=== PATIENT | male | born 1990 | race Caucasian/White ===

== ENCOUNTER 2018-03-18 22:43 | Inpatient (IN) | payer BC, MEDICAID, OTHER ==
[2018-03-18] MEDS ORDERED: SODIUM CHLORIDE 0.9% 1,000 ML IV ONE (23:10)
[2018-03-18 23:11] LABS: GLUCOSE, URINE (UA) 500 mg/dL (NEGATIVE); KETONES,URINE (UA) >=80 mg/dL (NEGATIVE); LEUKOCYTE ESTERASE, URINE NEGATIVE (NEGATIVE); NITRITE,URINE NEGATIVE (NEGATIVE); OCCULT BLOOD,URINE MODERATE (NEGATIVE); PH,URINE 5.5 PH (5.0-7.5); PROTEIN,URINE 30 mg/dL (NEGATIVE); UROBILINOGEN,URINE 0.2 (NORMAL) E.U./dL (NORMAL)
[2018-03-18 23:14] LABS: BILIRUBIN,URINE NEGATIVE (NEGATIVE); CLARITY,URINE CLEAR (CLEAR); ICTOTEST,URINE NEGATIVE
[2018-03-18 23:19] LABS: BACTERIA,URINE Rare /HPF (None Seen); CASTS, URINE 11-25 Hyaline Casts /LPF; MUCUS,URINE Few Strands; SQUAMOUS EPITHELIAL CELL,UR RARE Squamous (<= Few)
[2018-03-18 23:52] LABS: KETONES, SERUM (ACETEST) SMALL (NEGATIVE)
[2018-03-18 23:56] LABS: VBG BASE EXCESS -19.9 mmol/L (-2 - +2); VBG PCO2 18.2 mmHg (41-51); VBG PH 7.168 (7.31-7.41); VBG PO2 51.4 mmHg (25-47)
[2018-03-19] MEDS ORDERED: ONDANSETRON 4 MG/2 ML VIAL IVP PRN (00:05)
[2018-03-19] MEDS ORDERED: PROCHLORPERAZINE 10 MG/2 ML VIAL IVP PRN (00:05)
[2018-03-19] MEDS ORDERED: ACETAMINOPHEN 325 MG TABLET PO PRN (00:05)
[2018-03-19] MEDS ORDERED: PROMETHAZINE 25 MG/1 ML VIAL IM PRN (00:05)
[2018-03-19] MEDS ORDERED: oxyCODONE 5 MG TABLET PO PRN ×2 (00:05)
[2018-03-19] MEDS ORDERED: INSULIN REGULAR HUMAN 100 UNIT in SODIUM CHLORIDE 0.9% 100ML 99 ML IV SCH (00:05)
[2018-03-19] MEDS ORDERED: ZOLPIDEM 5 MG TABLET PO PRN (00:05)
[2018-03-19] MEDS ORDERED: SODIUM CHLORIDE 0.9% 1,000 ML IV ONE ×2 (00:07→01:31)
[2018-03-19 00:10] LABS: BASOPHILS # (AUTO) 0.1 10^3/uL (0.0-0.1); BASOPHILS % (AUTO) 0.6 %; EOSINOPHILS # (AUTO) 0.1 10^3/uL (0.0-0.7); EOSINOPHILS % (AUTO) 0.6 %; HGB - HEMOGLOBIN 14.3 g/dL (14.0-18.0); LYMPHOCYTES # (AUTO) 0.9 10^3/uL (1.5-3.5); LYMPHOCYTES % (AUTO) 10.3 %; MEAN CORPUSCULAR VOLUME 96.4 fL (80.0-94.0); MEAN PLATELET VOLUME 7.5 fL (7.4-11.4); MONOCYTES # (AUTO) 0.9 10^3/uL (0.0-1.0); MONOCYTES % (AUTO) 10.5 %; NEUTROPHILS # (AUTO) 6.7 10^3/uL (1.5-6.6); PLT - PLATELET COUNT 181 10^3/uL (130-450); RED BLOOD COUNT 4.29 10^6/uL (4.70-6.10); RED CELL DISTRIBUTION WIDTH 13.3 % (12.0-15.0); WHITE BLOOD COUNT 8.6 x10^3/uL (4.8-10.8)
--- NOTE | 2018-03-19 00:15 | HISTORY & PHYSICAL EXAMINATION ---
Chief Complaint - Chief Complaint Chief Complaint: Abdominal pain History of Present Illness - Admitted From Admitted From:: Emergency department - History Obtained From Records Reviewed: Yes History obtained from: Patient Exam Limitations: Severe abdominal pain, grimacing - History of Present Illness HPI Comment/Other: Patient is a 27-year-old gentleman with past medical history of bipolar and anxiety who presented to the emergency department with a chief complaint of abdominal pain. The patient states that when he woke up this morning he noticed that he had some discomfort in the left upper quadrant of his abdomen. He states that when he went to eat breakfast the pain became severe and he could not keep his breakfast down. He states that for the remainder of the day he has had left upper quadrant abdominal pain that has been up to a 9 out of 10 and he has been unable to eat anything. He states that he cannot even swallow because the pain is so bad and he feels nauseated. He states that over the last few months he is noted some odd symptoms. He states that he gets a metallic taste in his mouth, he has been having acid reflux and he has had constipation. He also notes that he has had a 30 pound weight loss over the last 5 months. He denies any polyuria or polydipsia. He states that today is the first time he experienced this kind of abdominal pain. The patient denies any heavy drinking, any travel, any recent illness and he does not take any medications or supplements. The patient states that he does drink a lot of water at baseline and has not noticed any changes recently. He also states that today he noticed that he got the chills especially when he tried to eat. He states that his left upper quadrant abdominal pain does move into the epigastric area when it gets very severe but he denies any radiation to the back. The patient states he has had no appetite today. The patient denies any fevers. The patient denies any headaches, blurred vision, runny nose, sore throat, nasal congestion, chest pain, cough, shortness of air, orthopnea, PND, increased lower extremity swelling, diarrhea, vomiting, dysuria, increased urinary urgency, joint pain, joint swelling, muscle aches, back pain, neck stiffness, focal neurologic deficits, hair loss, night sweats, skin rash. On presentation to the emergency department the patient was afebrile and his vital signs were within normal limits. The patient appeared to be in significant distress and had the smell of ketones to him. The patient underwent routine lab work which revealed a normal CBC with an anion gap metabolic acidosis, elevated glucose and positive serum ketones. The patient was also found to have an elevated lipase of 308 and in elevated bilirubin of 1.3 with an alk phos of 143. The patient underwent a CT of his abdomen and pelvis given his elevated LFTs and elevated lipase in the setting of a new diagnosis of diabetes with DKA. The patient's abdominal CT showed mild peripancreatic edema consistent with pancreatitis as well as large amount of stool in the colon. The patient also had possible fatty liver with mild splenomegaly. The patient also underwent an ultrasound of his abdomen which showed no cholelithiasis or cholecystitis and no biliary dilation but did reveal an enlarged spleen. The patient was tested for mono and the test was negative. The patient was started on an insulin drip in the emergency department and admitted to the intensive care unit for diabetic ketoacidosis and pancreatitis. History - Past Medical History Cardiovascular: reports: None Neuro: reports: None Endocrine/Autoimmune: reports: Type 1 diabetes (Newly diagnosed) GI: reports: None : reports: None HEENT: reports: None Psych: reports: Depression, Anxiety, Bipolar disorder Musculoskeletal: reports: None Derm: reports: None MRSA Hx?: No - Family & Social History Family History: Mother: Alive and Well, Father: Alive and Well, Other family: Cancer (Maternal grandmother had Cancer), Mental Illness (Paternal grandmother had bipolar and schizophrenia) Living arrangement: At home Living Situation: With spouse/s.o. Social History Notes: Patient lives in [place], [place]. He works full-time at [employer]. He lives with his girlfriend. He does not smoke cigarettes rarely drinks alcohol and denies any illicit drug use. - POLST Patient has POLST: No POLST Status: Full Code Meds/Allgy - Allergies Allergies/Adverse Reactions: Allergies Allergy/AdvReac Type Severity Reaction Status Date / Time No Known Drug Allergies Allergy Verified 03/18/18 22:53 Review of Systems - Other Findings Other Findings: A comprehensive review of systems was performed the pertinent positives and negatives are stated above in the HPI and the remainder of the review of systems is negative. Exam - Vital Signs Reviewed Vital Signs: Yes Vital Signs: Vital Signs x48h Temp Pulse Resp BP Pulse Ox 03/18/18 22:50 36.8 C 93 18 128/78 98 - Physical Exam General Appearance: positive: Alert, Moderate distress (Abdominal pain), Anxious Eyes Bilateral: positive: Normal inspection, PERRL, EOMI, No lid inflammation, Conjunctivae nml, No scleral icterus ENT: positive: ENT inspection nml, Pharynx nml, Dry mucous membranes. negative : Purulent nasal drainage, Pharyngeal erythema, Oral lesions Neck: positive: Nml inspection, Thyroid nml, No JVD, Trachea midline. negative : Thyromegaly, Lymphadenopathy (R), Lymphadenopathy (L), Stiff neck, Carotid bruit, Tracheal deviation Respiratory: positive: Chest non-tender, No respiratory distress, Breath sounds nml. negative: Wheezes, Rales, Rhonchi Cardiovascular: positive: Regular rate & rhythm, No murmur, No gallop Peripheral Pulses: positive: 2+ Abdomen: positive: Tenderness (Tenderness with guarding in the left upper quadrant and epigastric area of the abdomen. No rebound and abdomen is soft.), Guarding, Splenomegaly, Abnml bowel sounds (Increase bowel sounds). negative: Rebound, Hepatomegaly Back: positive: Nml inspection. negative: CVA tenderness (R), CVA tenderness (L ) Skin: positive: Color nml, No rash, Warm, Dry. negative: Cyanosis, Diaphoresis , Pallor, Skin rash, Decubitus Extremities: positive: Non-tender, Full ROM, Nml appearance, No pedal edema Neurologic/Psychiatric: positive: Oriented x3, CN's nml (2-12), Motor nml, Sensation nml, Mood/affect nml Conclusion/Plan - Problem List (1) DKA (diabetic ketoacidoses) Conclusion/Plan: Patient presented to the emergency department with abdominal pain, nausea and decreased appetite. Patient is also lost 30 pounds over the last 5 months. Patient has no previous diagnosis of diabetes. On presentation the patient had an elevated blood glucose with an anion gap metabolic acidosis and positive serum ketones. The patient was in DKA on presentation. It appears unlikely because of his DKA is a pancreatitis. This may all be due to a viral infection that could have led to pancreatitis and caused autoimmune destruction of his beta cells of the pancreas leading to a presentation of DKA. Plan: Insulin drip 0.1 U/kilogram per hour Check CMP every 2 hours until anion gap is closed Bicarb drip Stop insulin drip once anion gap is closed and then placed on n.p.o. sliding scale insulin as patient is still being treated for pancreatitis Check hemoglobin A1c Patient will need teaching for diabetes and will need to be started on insulin subcu once pancreatitis is resolved and patient can eat. Qualifiers: Diabetes mellitus type: other specified (including RONDA) Diabetes mellitus complication detail: without coma Qualified Code(s): E13.10 - Other specified diabetes mellitus with ketoacidosis without coma (2) Pancreatitis Conclusion/Plan: Patient presented with DKA and was found to have an elevated lipase and CT scan showed grace-pancreatic edema consistent with pancreatitis. The patient is not a drinker and his ultrasound was negative for any gallstones or cholecystitis. Patient is not on any medications. It appears the most likely cause of his pancreatitis is a viral infection. This could also explain why he developed DKA. They could also explain his elevated LFTs and splenomegaly. The patient' s infectious mono testing was negative. Plan: IV fluids Bowel rest n.p.o. IV morphine for pain control IV antiemetics for nausea control Check CMV PCR, HIV and hepatitis tank pumper panelboard lipase Qualifiers: Chronicity: acute Pancreatitis type: other Acute pancreatitis complication: unspecified Qualified Code(s): K85.80 - Other acute pancreatitis without necrosis or infection (3) High anion gap metabolic acidosis Conclusion/Plan: Patient has a high anion gap metabolic acidosis secondary to diabetic ketoacidosis. The patient will be placed on a bicarbonate drip and we will continue to monitor the patient's acidosis. Patient will also be treated for DKA and we expect that with resolution of patient's DKA the metabolic acidosis should also resolve. (4) Hyponatremia Conclusion/Plan: Patient does have hyponatremia on presentation with a sodium of 133 this appears to be hypovolemic hyponatremia and patient will be given IV fluids and we will recheck sodium. (5) Hypokalemia Conclusion/Plan: Patient has hypokalemia on presentation with a potassium of 3.3. As the patient is getting an insulin drip his potassium will likely continue to decrease. We will need to add potassium to his IV fluids. Continue to monitor potassium. (6) Fatty liver Conclusion/Plan: The patient does have appearance of a fatty liver on his CT scan. The patient does have a slightly elevated LFTs. Patient is not a drinker nor is he obese but he does have diabetes which appears to be his only risk factor for fatty liver given his young age this is unusual. It will need to continue to be monitored as an out patient. (7) Splenomegaly Conclusion/Plan: Patient does have splenomegaly on presentation I suspect that the patient had a viral illness that led to his pancreatitis as well as to his diabetes and DKA. The viral illness likely has led to splenomegaly. This will need to be monitored. It does not appear that the patient has a hematologic malignancy or any other kind of malignancy at this time. - Lab Results Lab results reviewed: Yes Fish Bones: 03/18/18 23:03/19/18 01:00 Other Lab Results: Laboratory Results WBC 8.6 x10^3/uL (4.8-10.8) 03/18/18 RBC 4.29 10^6/uL (4.70-6.10) L 03/18/18: Hgb 14.3 g/dL (14.0-18.0) 03/18/18: Hct 41.4 % (42.0-52.0) L 03/18/18: MCV 96.4 fL (80.0-94.0) H 03/18/18: MCH 33.3 pg (27.0-31.0) H 03/18/18: MCHC 34.5 g/dL (32.0-36.0) 03/18/18: RDW 13.3 % (12.0-15.0) 03/18/18 Plt Count 181 10^3/uL (130-450) 03/18/18: MPV 7.5 fL (7.4-11.4) 03/18/18: Neut # 6.7 10^3/uL (1.5-6.6) H 03/18/18: Lymph # 0.9 10^3/uL (1.5-3.5) L 03/18/18: [place] # 0.9 10^3/uL (0.0-1.0) 03/18/18: Eos # 0.1 10^3/uL (0.0-0.7) 05/21/18 23:28 Baso # 0.1 10^3/uL (0.0-0.1) 03/18/18 23:28 Absolute Nucleated RBC 0.01 x10^3/uL 03/18/18 23:28 Nucleated RBC % 0.1 /100WBC 03/18/18 23:28 VBG pH 7.118 (7.31-7.41) L 03/19/18 00:34 VBG pCO2 18.8 mmHg (41-51) L 03/19/18 00:34 VBG pO2 73.6 mmHg (25-47) H 03/19/18 00:34 VBG HCO3 5.9 mmol/L (23-28) L 03/19/18 00:34 VBG Total CO2 6.5 mmol/L (24-29) L 03/19/18 00:34 VBG O2 Saturation 94.7 % (60-80) H 03/19/18 00:34 VBG Base Excess -21.5 mmol/L (-2 - +2) L 03/19/18 00:34 Sodium 137 mmol/L (135-145) 03/19/18 02:48 Potassium 3.6 mmol/L (3.5-5.0) 03/19/18 02:48 Chloride 113 mmol/L (101-111) H 03/19/18 02:48 Carbon Dioxide < 10 mmol/L (21-32) L* 03/19/18 02:48 Anion Gap 14.0 (6-13) H 03/19/18 02:48 BUN 9 mg/dL (6-20) 03/19/18 02:48 Creatinine 0.9 mg/dL (0.6-1.2) 03/19/18 02:48 Estimated GFR (MDRD) 100 (>89) 03/19/18 02:48 Glucose 222 mg/dL (70-100) H 03/19/18 02:48 POC Whole Bld Glucose 207 mg/dL (70 - 100) H 03/19/18 03:00 Glycated Hemoglobin 12.1 % (4.6-6.2) H 03/19/18 00:34 Estim Average Glucose 301 (70-100) H 03/19/18 00:34 Lactic Acid 0.8 mmol/L (0.5-2.2) 03/18/18 23:28 Calcium 7.9 mg/dL (8.5-10.3) L 03/19/18 02:48 Phosphorus 4.0 mg/dL (2.5-4.6) 03/18/18 23: Magnesium 1.9 mg/dL (1.7-2.8) 03/19/18 02:48 Total Bilirubin 1.3 mg/dL (0.2-1.0) H 03/18/18 23:28 AST 11 IU/L (10-42) 03/18/18 23:28 ALT 13 IU/L (10-60) 03/18/18 23: Alkaline Phosphatase 143 IU/L (42-121) H 03/18/18 23: Troponin I < 0.04 ng/mL (<0.49) 03/19/18 00:34 Total Protein 6.6 g/dL (6.7-8.2) L 03/18/18 23: Albumin 4.2 g/dL (3.2-5.5) 03/18/18 23: Globulin 2.0 g/dL (2.1-4.2) L 03/18/18 23:28 Albumin/Globulin Ratio 1.8 (1.0-2.2) 03/18/18 23:28 Lipase 308 U/L (22-51) H 03/18/18 23:28 Urine Color YELLOW 03/18/18 23:05 Urine Clarity CLEAR (CLEAR) 03/18/18 23:05 Urine pH 5.5 PH (5.0-7.5) 03/18/18 23:05 Ur Specific [place] >=1.030 (1.002-1.030) H 03/18/18 23:05 Urine Protein 30 mg/dL (NEGATIVE) H 03/18/18 23:05 Urine Glucose (UA) 500 mg/dL (NEGATIVE) H 03/18/18 23:05 Urine Ketones >=80 mg/dL (NEGATIVE) H 03/18/18 23:05 Urine Occult Blood MODERATE (NEGATIVE) H 03/18/18 23:05 Urine Nitrite NEGATIVE (NEGATIVE) 03/18/18 23:05 Urine Bilirubin NEGATIVE (NEGATIVE) 03/18/18 23:05 Urine Urobilinogen 0.2 (NORMAL) E.U./dL (NORMAL) 03/18/18 23:05 Ur Leukocyte Esterase NEGATIVE (NEGATIVE) 03/18/18 23:05 Urine RBC 11-25 /HPF (0-5) H 03/18/18 23:05 Urine WBC 0-3 /HPF (0-3) 03/18/18 23:05 Ur Squamous Epith Cells RARE Squamous (<= Few) 03/18/18 23:05 Urine Bacteria Rare /HPF (None Seen) 03/18/18 23:05 Urine Casts 11-25 Hyaline Casts /LPF 03/18/18 23:05 Urine Mucus Few Strands 03/18/18 23:05 Ur Microscopic Review INDICATED 03/18/18 23:05 Urine Culture Comments NOT INDICATED 03/18/18 23:05 Serum Ketones SMALL (NEGATIVE) H 03/19/18 02:48 Infectious [place] Assay NEGATIVE (Negative) 03/18/18 23:28 - Diagnostic Imaging Results Diagnostic Imaging Results: positive: Final report reviewed Diagnostic Imaging Results Comments: CT abdomen/pelvis Impression: 1. Mild peripancreatic edema consistent with pancreatitis. No acute complication seen. 2. Large amount of stool in the colon. 3. Multiple nonspecific nondilated fluid filled small bowel loops. 4. Possible fatty liver with mild splenomegaly 5. Moderate to markedly distended urinary bladder. Abdominal ultrasound Impression: 1. No cholelithiasis or cholecystitis identified. 2. No biliary dilation 3. Enlarged spleen - EKG Results EKG Interpreted Independently: Yes EKG Findings: NSR Core Measures - Anticipated LOS I expect patient to be DC'd or transferred within 96 hours.: Yes - DVT/VTE - Prophylaxis VTE/DVT Prophylaxis med ordered at admit?: Yes
[2018-03-19 00:16] LABS: MEAN CORPUSCULAR HEMOGLOBIN 33.3 pg (27.0-31.0); MEAN CORPUSCULAR HGB CONC 34.5 g/dL (32.0-36.0)
--- NOTE | 2018-03-19 00:38 | ED Physician Documentation ---
PD HPI ABD PAIN - Stated complaint Stated Complaint: ABD PX - Chief complaint Chief Complaint: Abd Pain - History obtained from History obtained from: Patient, Family - History of Present Illness Timing - onset: How many weeks ago (2) Timing - details: Gradual onset, Still present Quality: Cramping, Aching, Stabbing Location: LUQ Worsened by: Eating, Position Associated symptoms: Nausea, Loss of appetite, Weight loss. No: Fever, Vomiting , Diarrhea, Constipation Similar symptoms before: Diagnosis Recently seen: Not recently seen - Additional information Additional information: Patient is a 27 year old male with no significant past medical history who is presenting to the emergency department for abdominal pain and weight loss. patient states that over the last few weeks he has had worsening abdominal pain. patient states that he has been eating but he has been loosing weight. Review of Systems Constitutional: denies: Fever, Chills Eyes: reports: Reviewed and negative Ears: reports: Reviewed and negative Throat: reports: Reviewed and negative Cardiac: denies: Chest pain / pressure, Palpitations Respiratory: denies: Dyspnea, Cough GI: reports: Abdominal Pain, Nausea. denies: Vomiting, Constipation, Diarrhea : reports: Dysuria, Frequency Neurologic: reports: Generalized weakness Endocrine: reports: Polydypsia, Polyuria, Weight loss Immunocompromised: denies: Immunocompromised PD PAST MEDICAL HISTORY - Past Medical History Cardiovascular: None Neuro: None Endocrine/Autoimmune: None GI: None : None HEENT: None Psych: Depression, Anxiety, Bipolar disorder Musculoskeletal: None Derm: None - Allergies Allergies/Adverse Reactions: Allergies Allergy/AdvReac Type Severity Reaction Status Date / Time No Known Drug Allergies Allergy Verified 03/18/18 22:53 - Social History Does the pt smoke?: No Smoking Status: Never smoker PD ED PE NORMAL - Vitals Vital signs reviewed: Yes - General General: Alert and oriented X 3 - HEENT HEENT: Atraumatic - Neck Neck: Supple, no meningeal sign - Cardiac Cardiac: RRR - Respiratory Respiratory: No respiratory distress, Clear bilaterally - Derm Derm: Normal color, No rash - Extremities Extremities: No deformity - Neuro Neuro: Alert and oriented X 3, No motor deficit, Normal speech Eye Opening: Spontaneous PD ED PE EXPANDED - General General: In Pain - HEENT HEENT: Dry mucous membranes - Abdomen Abdomen: Tender to palpation, Epigastric, LUQ. No: Rebound Results - Vitals Vitals: Vital Signs - 24 hr 03/18/18 22:50 Temperature 36.8 C Heart Rate 93 Respiratory 18 Rate Blood Pressure 128/78 O2 Saturation 98 Oxygen O2 Source Room air - Labs Labs: Laboratory Tests 03/18/18 03/18/18 03/18/18 23:05 23:08 23:28 WBC 8.6 RBC 4.29 L Hgb 14.3 Hct 41.4 L MCV 96.4 H MCH 33.3 H MCHC 34.5 RDW 13.3 Plt Count 181 MPV 7.5 Neut # 6.7 H Lymph # 0.9 L [place] # 0.9 Eos # 0.1 Baso # 0.1 Absolute Nucleated RBC 0.01 Nucleated RBC % 0.1 VBG pH VBG pCO2 VBG pO2 VBG HCO3 VBG Total CO2 VBG O2 Saturation VBG Base Excess Sodium Potassium Chloride Carbon Dioxide Anion Gap BUN Creatinine Estimated GFR (MDRD) Glucose POC Whole Bld Glucose 322 H Lactic Acid Calcium Phosphorus Magnesium Total Bilirubin AST ALT Alkaline Phosphatase Total Protein Albumin Globulin Albumin/Globulin Ratio Lipase Urine Color YELLOW Urine Clarity CLEAR Urine pH 5.5 Ur Specific [place] >=1.030 H Urine Protein 30 H Urine Glucose (UA) 500 H Urine Ketones >=80 H Urine Occult Blood MODERATE H Urine Nitrite NEGATIVE Urine Bilirubin NEGATIVE Urine Urobilinogen 0.2 (NORMAL) Ur Leukocyte Esterase NEGATIVE Urine RBC 11-25 H Urine WBC 0-3 Ur Squamous Epith Cells RARE Squamous Urine Bacteria Rare Urine Casts 11-25 Hyaline Casts Urine Mucus Few Strands Ur Microscopic Review INDICATED Urine Culture Comments NOT INDICATED Serum Ketones Infectious [place] Assay 03/18/18 03/18/18 03/18/18 23:28 23:28 23:28 WBC RBC Hgb Hct MCV MCH MCHC RDW Plt Count MPV Neut # Lymph # [place] # Eos # Baso # Absolute Nucleated RBC Nucleated RBC % VBG pH 7.168 L VBG pCO2 18.2 L VBG pO2 51.4 H VBG HCO3 6.5 L VBG Total CO2 7.0 L VBG O2 Saturation 85.1 H VBG Base Excess -19.9 L Sodium 133 L Potassium 3.3 L Chloride 103 Carbon Dioxide 7 L* Anion Gap 23.0 H BUN 12 Creatinine 1.0 Estimated GFR (MDRD) 89 Glucose 298 H POC Whole Bld Glucose Lactic Acid 0.8 Calcium 8.4 L Phosphorus 4.0 Magnesium 2.1 Total Bilirubin 1.3 H AST 11 ALT 13 Alkaline Phosphatase 143 H Total Protein 6.6 L Albumin 4.2 Globulin 2.0 L Albumin/Globulin Ratio 1.8 Lipase 308 H Urine Color Urine Clarity Urine pH Ur Specific [place] Urine Protein Urine Glucose (UA) Urine Ketones Urine Occult Blood Urine Nitrite Urine Bilirubin Urine Urobilinogen Ur Leukocyte Esterase Urine RBC Urine WBC Ur Squamous Epith Cells Urine Bacteria Urine Casts Urine Mucus Ur Microscopic Review Urine Culture Comments Serum Ketones SMALL H Infectious [place] Assay 03/18/18 23:28 WBC RBC Hgb Hct MCV MCH MCHC RDW Plt Count MPV Neut # Lymph # [place] # Eos # Baso # Absolute Nucleated RBC Nucleated RBC % VBG pH VBG pCO2 VBG pO2 VBG HCO3 VBG Total CO2 VBG O2 Saturation VBG Base Excess Sodium Potassium Chloride Carbon Dioxide Anion Gap BUN Creatinine Estimated GFR (MDRD) Glucose POC Whole Bld Glucose Lactic Acid Calcium Phosphorus Magnesium Total Bilirubin AST ALT Alkaline Phosphatase Total Protein Albumin Globulin Albumin/Globulin Ratio Lipase Urine Color Urine Clarity Urine pH Ur Specific [place] Urine Protein Urine Glucose (UA) Urine Ketones Urine Occult Blood Urine Nitrite Urine Bilirubin Urine Urobilinogen Ur Leukocyte Esterase Urine RBC Urine WBC Ur Squamous Epith Cells Urine Bacteria Urine Casts Urine Mucus Ur Microscopic Review Urine Culture Comments Serum Ketones Infectious [place] Assay NEGATIVE - Rads (name of study) ct abd pelvis Radiology: Final report received (acute pancreatitis) PD MEDICAL DECISION MAKING - ED course Complexity details: reviewed old records, reviewed results, re-evaluated patient , considered differential, d/w patient, d/w family, d/w qa consultant ED course: Patient was seen and examined at bedside. patient's breath smelled like ketones so fingerstick was ordered and was elevated at over 300. patient was started on IV fluids but stated that he did not want any pain medication. Labs were drawn and findings were consistent with dka and pancreatitis. Patient was treated with a second liter of fluid, potassium and insulin drip was started. Case was discussed with the hospitalist who agreed to admission. patient had imaging enroute that confirmed pancreatitis. Patient was admitted to the icu in critical condition. Departure - Departure Disposition: 66 [facility] DC/Xfer Clinical Impression: DKA (diabetic ketoacidoses) Condition: Critical
[2018-03-19 00:46] LABS: ALBUMIN 4.2 g/dL (3.2-5.5); ALBUMIN/GLOBULIN RATIO 1.8 (1.0-2.2); ALKALINE PHOSPHATASE 143 IU/L (42-121); ALT ALANINE AMINOTRANSFERASE 13 IU/L (10-60); AST ASPARTATE AMINOTRANSFERASE 11 IU/L (10-42); BILIRUBIN,TOTAL 1.3 mg/dL (0.2-1.0); BUN - BLOOD UREA NITROGEN 12 mg/dL (6-20); CALCIUM 8.4 mg/dL (8.5-10.3); CHLORIDE 103 mmol/L (101-111); GFR - MDRD 89 (>89); GLUCOSE 298 mg/dL (70-100); LIPASE 308 U/L (22-51); MAGNESIUM 2.1 mg/dL (1.7-2.8); SODIUM 133 mmol/L (135-145); TOTAL PROTEIN 6.6 g/dL (6.7-8.2)
[2018-03-19 00:47] LABS: CARBON DIOXIDE - CO2 7 mmol/L (21-32)
[2018-03-19] MEDS ORDERED: POTASSIUM CHLOR 10 MEQ/100 ML 10 MEQ/100 ML BAG IV ONE (00:52)
[2018-03-19] MEDS ORDERED: INSULIN REGULAR HUMAN 100 UNIT in SODIUM CHLORIDE 0.9% 100ML 99 ML IV STA (00:52)
[2018-03-19] MEDS ORDERED: SODIUM CHLORIDE 0.9% 1,000 ML IV SCH (01:00)
[2018-03-19 01:08] LABS: VBG BASE EXCESS -21.5 mmol/L (-2 - +2); VBG PCO2 18.8 mmHg (41-51); VBG PH 7.118 (7.31-7.41); VBG PO2 73.6 mmHg (25-47); VBG TOTAL CO2 6.5 mmol/L (24-29)
[2018-03-19] MEDS ORDERED: IOPAMIDOL-300 100 ML VIAL ONE (01:16)
[2018-03-19 01:19] LABS: BUN - BLOOD UREA NITROGEN 10 mg/dL (6-20); CALCIUM 7.6 mg/dL (8.5-10.3); CHLORIDE 107 mmol/L (101-111); GFR - MDRD 89 (>89); GLUCOSE 270 mg/dL (70-100); MAGNESIUM 1.9 mg/dL (1.7-2.8); SODIUM 133 mmol/L (135-145)
[2018-03-19 01:20] LABS: CARBON DIOXIDE - CO2 < 10 mmol/L (21-32)
[2018-03-19] MEDS ORDERED: IOPAMIDOL-300 100 ML VIAL IVP ONE (01:45)
--- NOTE | 2018-03-19 02:03 | CT Report ---
EXAM: CT ABDOMEN AND PELVIS EXAM DATE: 03/19/2018 01:50 AM. CLINICAL HISTORY: Abdominal pain, elevated lipase. COMPARISONS: None. TECHNIQUE: Routine helical CT imaging was performed through the abdomen and pelvis. IV contrast: 100M L ISOVUE 300. Enteric contrast: No. Reconstructions: Coronal and sagittal. In accordance with CT protocol optimization, one or more of the following dose reduction techniques w ere utilized for this exam: automated exposure control, adjustment of mA and/or KV based on patient s ize, or use of iterative reconstructive technique. FINDINGS: Lung Bases: Unremarkable. Liver: Possible fatty infiltration. Gallbladder/Bile Ducts: Unremarkable. Spleen: Enlarged at 14 cm. Pancreas: Mild peripancreatic edema consistent with pancreatitis. No abscess or pseudocyst. Adrenal Glands: Normal. Kidneys: Normal. No masses or hydronephrosis. Peritoneal Cavity/Bowel: Large amount of stool in the colon. Multiple nonspecific nondilated fluid-fi lled small bowel loops. No free air or free fluid identified. No lymphadenopathy seen. Appendix is pa rtially seen and visualized portions appear normal. Pelvic Organs: Moderately to markedly distended urinary bladder. No leak organs are otherwise unremar kable. Vasculature: No aneurysms or other significant abnormality. Bones: No significant abnormality. Other: None. IMPRESSION: 1. Mild peripancreatic edema consistent with pancreatitis. No acute complication seen. 2. Large amount of stool in the colon. 3. Multiple nonspecific nondilated fluid-filled small bowel loops. 4. Possible fatty liver with mild splenomegaly. 5. Moderately to markedly distended urinary bladder. [facility] Referring Provider Line: [phone] SITE ID: [id number]
[2018-03-19 02:15] LABS: HB2 TOTAL 13.8 g/dL; HEMOGLOBIN A1C 1.5 g/dL; HEMOGLOBIN A1C % 12.1 % (4.6-6.2)
--- NOTE | 2018-03-19 02:42 | Ultrasound Preliminary Report ---
Exam: US ABDOMEN LIMITED IMPRESSION: 1. No cholelithiasis or cholecystitis identified. 2. No biliary dilatation. 3. Enlarged spleen. [facility] SITE ID: [id number]
--- NOTE | 2018-03-19 02:42 | Ultrasound Report ---
EXAM: ABDOMEN ULTRASOUND LIMITED, RUQ EXAM DATE: 03/19/2018 01:42 AM. CLINICAL HISTORY: Elevated lipase and LFTs with abdominal pain r/o cholecystitis. COMPARISON: CT, 03/19/2018. TECHNIQUE: Real-time scanning was performed with static images obtained. FINDINGS: Liver: Normal in size and echotexture. 16.7 cm. Main portal vein flow: Hepatopetal. Gallbladder: Normal. No stones, wall thickening, or sonographic Tucker's sign. Biliary System: CBD measures 2 mm. No intrahepatic or extrahepatic ductal dilatation. Other: Last portions of the pancreas are grossly unremarkable. Most of the pancreas is obscured by [place] gas. Right kidney measures 13.8 cm and appears normal. Inferior vena cava is patent where seen. S plenomegaly measuring 14.2 cm. IMPRESSION: 1. No cholelithiasis or cholecystitis identified. 2. No biliary dilatation. 3. Enlarged spleen. [facility] Referring Provider Line: [phone] SITE ID: [id number]
[2018-03-19] MEDS ORDERED: MORPHINE 2 MG/ML SYRINGE IVP PRN ×2 (02:44→05:22)
[2018-03-19] MEDS: SODIUM CHLORIDE FLUSH 0.9% 10 ML SYRINGE IVP PRN (02:54)
[2018-03-19 02:59] LABS: KETONES, SERUM (ACETEST) SMALL (NEGATIVE)
[2018-03-19] MEDS ORDERED: DEXTROSE 5% 1,000 ML IV ONE (03:18)
[2018-03-19] MEDS ORDERED: SODIUM BICARBONATE 8.4% 50 MEQ/50 ML VIAL ONE (03:20)
[2018-03-19 03:21] LABS: BUN - BLOOD UREA NITROGEN 9 mg/dL (6-20); CALCIUM 7.9 mg/dL (8.5-10.3); CARBON DIOXIDE - CO2 < 10 mmol/L (21-32); CHLORIDE 113 mmol/L (101-111); CREATININE 0.9 mg/dL (0.6-1.2); GFR - MDRD 100 (>89); GLUCOSE 222 mg/dL (70-100); MAGNESIUM 1.9 mg/dL (1.7-2.8); SODIUM 137 mmol/L (135-145)
[2018-03-19] MEDS: SODIUM BICARBONATE 100 MEQ in DEXTROSE 5% 1,000 ML IV SCH ×2 (03:28→14:32)
[2018-03-19] MEDS: SODIUM CHLORIDE FLUSH 0.9% 10 ML SYRINGE IVP SCH ×3 (03:47→15:15)
[2018-03-19] MEDS ORDERED: MORPHINE 2 MG/ML SYRINGE IVP SCH (04:17)
[2018-03-19 04:26] LABS: KETONES, SERUM (ACETEST) SMALL (NEGATIVE)
[2018-03-19 04:31] LABS: BASOPHILS % (AUTO) 0.5 %; EOSINOPHILS % (AUTO) 0.3 %; HGB - HEMOGLOBIN 12.3 g/dL (14.0-18.0); LYMPHOCYTES # (AUTO) 0.7 10^3/uL (1.5-3.5); LYMPHOCYTES % (AUTO) 7.6 %; MEAN CORPUSCULAR VOLUME 97.8 fL (80.0-94.0); MEAN PLATELET VOLUME 7.6 fL (7.4-11.4); MONOCYTES # (AUTO) 1.1 10^3/uL (0.0-1.0); MONOCYTES % (AUTO) 11.9 %; NEUTROPHILS # (AUTO) 7.3 10^3/uL (1.5-6.6); NEUTROPHILS % (AUTO) 79.7 %; PLT - PLATELET COUNT 161 10^3/uL (130-450); RED BLOOD COUNT 3.68 10^6/uL (4.70-6.10); RED CELL DISTRIBUTION WIDTH 13.2 % (12.0-15.0); WHITE BLOOD COUNT 9.1 x10^3/uL (4.8-10.8)
[2018-03-19 04:35] LABS: MEAN CORPUSCULAR HEMOGLOBIN 33.4 pg (27.0-31.0); MEAN CORPUSCULAR HGB CONC 34.3 g/dL (32.0-36.0)
[2018-03-19 04:50] LABS: ALBUMIN 3.5 g/dL (3.2-5.5); ALBUMIN/GLOBULIN RATIO 2.2 (1.0-2.2); ALKALINE PHOSPHATASE 114 IU/L (42-121); ALT ALANINE AMINOTRANSFERASE 17 IU/L (10-60); AST ASPARTATE AMINOTRANSFERASE 20 IU/L (10-42); BILIRUBIN,TOTAL 1.6 mg/dL (0.2-1.0); BUN - BLOOD UREA NITROGEN 10 mg/dL (6-20); CALCIUM 7.8 mg/dL (8.5-10.3); CHLORIDE 116 mmol/L (101-111); CREATININE 0.9 mg/dL (0.6-1.2); GFR - MDRD 100 (>89); GLUCOSE 191 mg/dL (70-100); MAGNESIUM 1.8 mg/dL (1.7-2.8); PHOSPHORUS 3.2 mg/dL (2.5-4.6); SODIUM 140 mmol/L (135-145); TOTAL PROTEIN 5.1 g/dL (6.7-8.2)
[2018-03-19 04:54] LABS: CARBON DIOXIDE - CO2 < 10 mmol/L (21-32)
[2018-03-19 05:00] LABS: CHOL/HDL RATIO 38.3 (<5.0); CHOLESTEROL 345 mg/dL; HDL CHOLESTEROL 9 mg/dL
[2018-03-19] MEDS ORDERED: SODIUM CHLORIDE 0.9% 500 ML IV PRN (05:23)
[2018-03-19 05:27] LABS: LDL CHOLESTEROL,DIRECT 89 mg/dL; LDLD/HDL RATIO 9.9 (<3.6)
[2018-03-19] MEDS: ACETAMINOPHEN 1,000 MG/100 ML 100 ML IV PRN ×3 (05:31→20:00)
[2018-03-19 08:19] LABS: VBG PH 7.266 (7.31-7.41)
[2018-03-19] MEDS: SENNA 8.6 MG TABLET PO SCH (08:52)
[2018-03-19] MEDS: DOCUSATE SODIUM 250 MG CAPSULE PO SCH (08:52)
[2018-03-19] MEDS: FAMOTIDINE 20 MG/50 ML 50 ML IV SCH ×2 (09:07→20:57)
[2018-03-19] MEDS: POTASSIUM CHLOR 10 MEQ/100 ML 10 MEQ/100 ML BAG IV SCH ×4 (09:13→12:32)
[2018-03-19] MEDS: INSULIN REGULAR HUMAN 100 UNIT in SODIUM CHLORIDE 0.9% 100ML 99 ML IV SCH ×2 (15:12→15:37)
--- NOTE | 2018-03-19 16:27 | PROVIDER PROGRESS NOTE ---
Assessment/Plan - Problem List (1) DKA (diabetic ketoacidoses) Qualifiers: Diabetes mellitus type: other specified (including RONDA) Diabetes mellitus complication detail: without coma Qualified Code(s): E13.10 - Other specified diabetes mellitus with ketoacidosis without coma Assessment/Plan: Still clearing ketones. Continue DKA protocol. I discussed diagnosis and management with parents and girlfriend at patient's bedside. (2) Pancreatitis Qualifiers: Chronicity: acute Pancreatitis type: other Acute pancreatitis complication: unspecified Qualified Code(s): K85.80 - Other acute pancreatitis without necrosis or infection Assessment/Plan: Continue to follow labs (3) Splenomegaly Assessment/Plan: Etiology unclear Awaiting viral tests. Continue to monitor clinically. (4) Hypertriglyceridemia Assessment/Plan: Continue to follow labs. Treat by decreasing serum glu level - Current Meds Current Meds: Current Medications Generic Name Dose Route Start Last Admin Trade Name Freq PRN Reason Stop Dose Admin Docusate Sodium 250 - 500 mg 03/19/18 09:00 03/19/18 08:52 Colace 250mg Capsule PO Not Given DAILY CUCO Famotidine 50 mls @ 100 mls/hr 03/19/18 09:00 03/19/18 09:37 Pepcid 20 Mg/50 Ml IV Infused BID CUCO Infusion Sodium Bicarbonate 100 meq/ 1,100 mls @ 100 mls/hr 03/19/18 02:00 03/19/18 16 :00 Dextrose IV 100 mls/hr .Q11H CUCO Infusion Acetaminophen 100 mls @ 400 mls/hr 03/19/18 02:45 03/19/18 11:55 Ofirmev IV Infused Q6HR PRN Infusion PAIN Sodium Chloride 500 mls @ 10 mls/hr 03/19/18 05:23 03/19/18 16:00 Normal Saline 0.9% IV 10 mls/hr .Q48H PRN Infusion Peripheral Line Protocol Insulin Human Regular 100 unit 100 mls @ 1 mls/hr 03/19/18 15:04 03/19/18 16: 03 / Sodium Chloride IV 1 unit/hr .Q72H CUCO 1 mls/hr 1 UNIT/HR Infusion Morphine Sulfate 1 mg 03/19/18 05:22 03/19/18 05:32 Morphine IVP 1 mg Q2H PRN Administration PAIN Senna 8.6 - 17.2 mg 03/19/18 09:00 03/19/18 08:52 Senokot PO Not Given DAILY CUCO Sodium Chloride 10 ml 03/19/18 01:00 03/19/18 15:15 Normal Saline Flush 0.9% IVP Not Given 0100,0900,1700 CUCO Sodium Chloride 10 ml 03/19/18 00:05 03/19/18 02:54 Normal Saline Flush 0.9% IVP 10 ml PRN PRN Administration NEEDED PER PROVIDER ORDERS - Lab Result Fish Bone Diagrams: 03/20/18 04:40 03/20/18 14:23 - Additional Planning My Orders: My Active Orders 03/19/18 15:04 Sodium Chloride 0.9% 100Ml [Normal Saline 0.9% 100Ml] 99 ml Insulin Regular Human [NovoLIN R] 100 unit IV 1 unit/hr Subjective - Subjective Nursing Reports: Other (Pt sleeping most of day.) Objective Vital Signs: Vital Signs - 24 hr 03/19/18 03/19/18 03/19/18 00:46 02:35 03:00 Temperature 36.7 C 37.5 C Heart Rate 86 Heart Rate [ 74 72 Monitoring electrodes] Respiratory 16 15 19 Rate Blood Pressure 127/65 Blood Pressure 122/69 112/57 L [Right Brachial artery] O2 Saturation 100 100 100 03/19/18 03/19/18 03/19/18 04:00 05:00 06:00 Temperature Heart Rate Heart Rate [ 78 80 87 Monitoring electrodes] Respiratory 18 17 17 Rate Blood Pressure Blood Pressure 110/59 L 111/61 117/61 [Right Brachial artery] O2 Saturation 99 98 96 03/19/18 03/19/18 03/19/18 07:00 08:00 09:27 Temperature 37.4 C Heart Rate Heart Rate [ 70 68 71 Monitoring electrodes] Respiratory 13 13 14 Rate Blood Pressure Blood Pressure 110/63 109/56 L 104/59 L [Right Brachial artery] O2 Saturation 96 97 98 03/19/18 03/19/18 03/19/18 10:00 10:30 11:30 Temperature 37.8 C H Heart Rate Heart Rate [ 74 79 Monitoring electrodes] Respiratory 14 16 Rate Blood Pressure Blood Pressure 97/62 99/57 L 103/59 L [Right Brachial artery] O2 Saturation 100 98 03/19/18 03/19/18 03/19/18 12:00 13:00 14:00 Temperature 37.4 C Heart Rate Heart Rate [ 76 68 75 Monitoring electrodes] Respiratory 16 14 14 Rate Blood Pressure Blood Pressure 103/58 L 102/62 102/54 L [Right Brachial artery] O2 Saturation 95 94 100 03/19/18 03/19/18 15:00 16:00 Temperature Heart Rate Heart Rate [ 77 70 Monitoring electrodes] Respiratory 16 13 Rate Blood Pressure Blood Pressure 113/55 L 105/58 L [Right Brachial artery] O2 Saturation 98 Oxygen O2 Source Room air I&O (Last 24 Hrs): Intake and Output Totals x24h 03/17/18 03/18/18 03/19/18 23:59 23:59 23:59 Intake Total 5328.166 Output Total 3675 Balance 1653.166 General: Other (Sleeping) HEENT: Mucous membr. moist/pink Neck: Supple Neuro: Other (Lethargic) Cardiovascular: Regular rate, No murmurs Respiratory: No respiratory distress, Breath sounds nml Abdomen: Soft, Other (Decteased bowel soiunds, no guarding or rebound) Extremities: No edema - Results Results: Laboratory Results WBC 9.1 x10^3/uL (4.8-10.8) 03/19/18 04:11 RBC 3.68 10^6/uL (4.70-6.10) L 03/19/18 04:11 Hgb 12.3 g/dL (14.0-18.0) L 03/19/18 04:11 Hct 35.9 % (42.0-52.0) L 03/19/18 04:11 MCV 97.8 fL (80.0-94.0) H 03/19/18 04:11 MCH 33.4 pg (27.0-31.0) H 03/19/18 04:11 MCHC 34.3 g/dL (32.0-36.0) 03/19/18 04:11 RDW 13.2 % (12.0-15.0) 03/19/18 04:11 Plt Count 161 10^3/uL (130-450) 03/19/18 04:11 MPV 7.6 fL (7.4-11.4) 03/19/18 04:11 Neut # 7.3 10^3/uL (1.5-6.6) H 03/19/18 04:11 Lymph # 0.7 10^3/uL (1.5-3.5) L 03/19/18 04:11 [place] # 1.1 10^3/uL (0.0-1.0) H 03/19/18 04:11 Eos # 0.0 10^3/uL (0.0-0.7) 03/19/18 04:11 Baso # 0.0 10^3/uL (0.0-0.1) 03/19/18 04:11 Absolute Nucleated RBC 0.01 x10^3/uL 03/19/18 04:11 Nucleated RBC % 0.1 /100WBC 03/19/18 04:11 VBG pH 7.266 (7.31-7.41) L 03/19/18 08:00 VBG pCO2 18.8 mmHg (41-51) L 03/19/18 00:34 VBG pO2 73.6 mmHg (25-47) H 03/19/18 00:34 VBG HCO3 5.9 mmol/L (23-28) L 03/19/18 00:34 VBG Total CO2 6.5 mmol/L (24-29) L 03/19/18 00:34 VBG O2 Saturation 94.7 % (60-80) H 03/19/18 00:34 VBG Base Excess -21.5 mmol/L (-2 - +2) L 03/19/18 00:34 Ionized Calcium 1.20 mmol/L (1.15-1.33) 03/19/18 08:00 Sodium 140 mmol/L (135-145) 03/19/18 04:11 Potassium 3.3 mmol/L (3.5-5.0) L 03/19/18 04:11 Chloride 116 mmol/L (101-111) H 03/19/18 04:11 Carbon Dioxide < 10 mmol/L (21-32) L* 03/19/18 04:11 Anion Gap 14.0 (6-13) H 03/19/18 04:11 BUN 10 mg/dL (6-20) 03/19/18 04:11 Creatinine 0.9 mg/dL (0.6-1.2) 03/19/18 04:11 Estimated GFR (MDRD) 100 (>89) 03/19/18 04:11 Glucose 191 mg/dL (70-100) H 03/19/18 04:11 POC Whole Bld Glucose 101 mg/dL (70 - 100) H 03/19/18 15:40 Glycated Hemoglobin 12.1 % (4.6-6.2) H 03/19/18 00:34 Estim Average Glucose 301 (70-100) H 03/19/18 00:34 Lactic Acid 0.8 mmol/L (0.5-2.2) 03/18/18 23:28 Calcium 7.8 mg/dL (8.5-10.3) L 03/19/18 04:11 Phosphorus 3.2 mg/dL (2.5-4.6) 03/19/18 04:11 Magnesium 1.8 mg/dL (1.7-2.8) 03/19/18 04:11 Total Bilirubin 1.6 mg/dL (0.2-1.0) H 03/19/18 04:11 AST 20 IU/L (10-42) 03/19/18 04:11 ALT 17 IU/L (10-60) 03/19/18 04:11 Alkaline Phosphatase 114 IU/L (42-121) 03/19/18 04:11 Troponin I < 0.04 ng/mL (<0.49) 03/19/18 12:09 Total Protein 5.1 g/dL (6.7-8.2) L 03/19/18 04:11 Albumin 3.5 g/dL (3.2-5.5) 03/19/18 04:11 Globulin 1.3 g/dL (2.1-4.2) L 03/19/18 04:11 Albumin/Globulin Ratio 2.2 (1.0-2.2) 03/19/18 04:11 Triglycerides > 2000 mg/dL (-149) H 03/19/18 04:11 Cholesterol 345 mg/dL (-199) H 03/19/18 04:11 LDL Cholesterol Direct 89 mg/dL (-129) 03/19/18 04:11 LDL Cholesterol, Calc Not Reportable 03/19/18 04:11 VLDL Cholesterol Not Reportable 03/19/18 04:11 HDL Cholesterol 9 mg/dL (60-) L 03/19/18 04:11 LDL/HDL Ratio Not Reportable 03/19/18 04:11 dLDL/HDL Ratio 9.9 (<3.6) 03/19/18 04:11 Cholesterol/HDL Ratio 38.3 (<5.0) 03/19/18 04:11 Lipase 308 U/L (22-51) H 03/18/18 23:28 TSH 2.74 uIU/mL (0.34-5.60) 03/19/18 08:00 Urine Color YELLOW 03/18/18 23:05 Urine Clarity CLEAR (CLEAR) 03/18/18 23:05 Urine pH 5.5 PH (5.0-7.5) 03/18/18 23:05 Ur Specific [place] >=1.030 (1.002-1.030) H 03/18/18 23:05 Urine Protein 30 mg/dL (NEGATIVE) H 03/18/18 23:05 Urine Glucose (UA) 500 mg/dL (NEGATIVE) H 03/18/18 23:05 Urine Ketones >=80 mg/dL (NEGATIVE) H 03/18/18 23:05 Urine Occult Blood MODERATE (NEGATIVE) H 03/18/18 23:05 Urine Nitrite NEGATIVE (NEGATIVE) 03/18/18 23:05 Urine Bilirubin NEGATIVE (NEGATIVE) 03/18/18 23:05 Urine Urobilinogen 0.2 (NORMAL) E.U./dL (NORMAL) 03/18/18 23:05 Ur Leukocyte Esterase NEGATIVE (NEGATIVE) 03/18/18 23:05 Urine RBC 11-25 /HPF (0-5) H 03/18/18 23:05 Urine WBC 0-3 /HPF (0-3) 03/18/18 23:05 Ur Squamous Epith Cells RARE Squamous (<= Few) 03/18/18 23:05 Urine Bacteria Rare /HPF (None Seen) 03/18/18 23:05 Urine Casts 11-25 Hyaline Casts /LPF 03/18/18 23:05 Urine Mucus Few Strands 03/18/18 23:05 Ur Microscopic Review INDICATED 03/18/18 23:05 Urine Culture Comments NOT INDICATED 03/18/18 23:05 Serum Ketones SMALL (NEGATIVE) H 03/19/18 16:01 Infectious [place] Assay NEGATIVE (Negative) 03/18/18 23:28 ABX Reporting Has patient been on IV antibiotics over the past 48 hours?: No
[2018-03-20] MEDS: SODIUM CHLORIDE FLUSH 0.9% 10 ML SYRINGE IVP SCH ×3 (01:01→18:36)
[2018-03-20] MEDS ORDERED: SODIUM BICARBONATE 8.4% 50 MEQ/50 ML VIAL ONE (01:35)
[2018-03-20] MEDS: SODIUM BICARBONATE 100 MEQ in DEXTROSE 5% 1,000 ML IV SCH (01:37)
[2018-03-20] MEDS ORDERED: DEXTROSE 5% 1,000 ML IV ONE (01:38)
[2018-03-20 05:09] LABS: BASOPHILS # (AUTO) 0.2 10^3/uL (0.0-0.1); BASOPHILS % (AUTO) 3.4 %; EOSINOPHILS # (AUTO) 0.1 10^3/uL (0.0-0.7); EOSINOPHILS % (AUTO) 2.5 %; LYMPHOCYTES # (AUTO) 0.6 10^3/uL (1.5-3.5); LYMPHOCYTES % (AUTO) 11.5 %; MEAN PLATELET VOLUME 7.6 fL (7.4-11.4); MONOCYTES # (AUTO) 0.8 10^3/uL (0.0-1.0); MONOCYTES % (AUTO) 16.3 %; NEUTROPHILS # (AUTO) 3.2 10^3/uL (1.5-6.6); NEUTROPHILS % (AUTO) 66.3 %; PLT - PLATELET COUNT 131 10^3/uL (130-450); RED BLOOD COUNT 3.32 10^6/uL (4.70-6.10); WHITE BLOOD COUNT 4.9 x10^3/uL (4.8-10.8)
[2018-03-20 05:31] LABS: MEAN CORPUSCULAR HEMOGLOBIN 32.2 pg (27.0-31.0); MEAN CORPUSCULAR HGB CONC 34.3 g/dL (32.0-36.0); MEAN CORPUSCULAR VOLUME 94.1 fL (80.0-94.0); RED CELL DISTRIBUTION WIDTH 13.7 % (12.0-15.0)
[2018-03-20 05:32] LABS: ALBUMIN 3.1 g/dL (3.2-5.5); ALBUMIN/GLOBULIN RATIO 1.3 (1.0-2.2); ALKALINE PHOSPHATASE 96 IU/L (42-121); ALT ALANINE AMINOTRANSFERASE 10 IU/L (10-60); AST ASPARTATE AMINOTRANSFERASE < 10 IU/L (10-42); BILIRUBIN,TOTAL 0.8 mg/dL (0.2-1.0); BUN - BLOOD UREA NITROGEN 10 mg/dL (6-20); CALCIUM 8.3 mg/dL (8.5-10.3); CARBON DIOXIDE - CO2 22 mmol/L (21-32); CHLORIDE 105 mmol/L (101-111); CHOL/HDL RATIO 10.1 (<5.0); CHOLESTEROL 162 mg/dL; CREATININE 0.6 mg/dL (0.6-1.2); GFR - MDRD 160 (>89); GLUCOSE 178 mg/dL (70-100); HDL CHOLESTEROL 16 mg/dL; MAGNESIUM 2.3 mg/dL (1.7-2.8); PHOSPHORUS 2.4 mg/dL (2.5-4.6); SODIUM 133 mmol/L (135-145); TOTAL PROTEIN 5.4 g/dL (6.7-8.2)
[2018-03-20] MEDS ORDERED: POTASSIUM PHOSPHATE 15 MMOL in SODIUM CHLORIDE 0.9% 250 ML IV ONE ×2 (05:38→08:30)
[2018-03-20 05:51] LABS: LDL CHOLESTEROL,DIRECT 51 mg/dL; LDLD/HDL RATIO 3.2 (<3.6)
[2018-03-20] MEDS ORDERED: INSULIN REGULAR HUMAN 100 UNIT in SODIUM CHLORIDE 0.9% 100ML 99 ML IV SCH (06:20)
[2018-03-20] MEDS: POTASSIUM CHLOR 10 MEQ/100 ML 10 MEQ/100 ML BAG IV SCH ×13 (06:30→20:07)
[2018-03-20] MEDS: INSULIN GLARGINE 300 UNIT/3 ML PEN SUBQ SCH ×2 (07:12→17:57)
[2018-03-20] MEDS: ACETAMINOPHEN 1,000 MG/100 ML 100 ML IV PRN (08:24)
[2018-03-20] MEDS: SENNA 8.6 MG TABLET PO SCH (10:00)
[2018-03-20] MEDS: DOCUSATE SODIUM 250 MG CAPSULE PO SCH (10:00)
[2018-03-20] MEDS: FAMOTIDINE 20 MG/50 ML 50 ML IV SCH ×2 (10:04→21:00)
[2018-03-20] MEDS: SODIUM CHLORIDE FLUSH 0.9% 10 ML SYRINGE IVP PRN ×2 (10:10→14:33)
[2018-03-20] MEDS: INSULIN ASPART 300 UNIT/3 ML PEN SUBQ SCH ×3 (12:42→21:20)
[2018-03-20] MEDS: INSULIN REGULAR HUMAN 100 UNIT/1 ML 10 ML MDV SUBQ SCH ×2 (12:44→18:34)
[2018-03-20 15:38] LABS: HIV AG/AB 4TH GEN NON-REACTIVE (NON-REACTIVE)
[2018-03-20] MEDS ORDERED: SODIUM CHLORIDE 0.9% 500 ML IV PRN (16:45)
--- NOTE | 2018-03-20 17:06 | PROVIDER PROGRESS NOTE ---
Assessment/Plan - Problem List (1) DKA (diabetic ketoacidoses) Qualifiers: Diabetes mellitus type: other specified (including RONDA) Diabetes mellitus complication detail: without coma Qualified Code(s): E13.10 - Other specified diabetes mellitus with ketoacidosis without coma Assessment/Plan: Resolved with normal anion gap. Starting Lantus and Insulin sliding scale coverage. Will advance diet (2) Pancreatitis Qualifiers: Chronicity: acute Pancreatitis type: other Acute pancreatitis complication: unspecified Qualified Code(s): K85.80 - Other acute pancreatitis without necrosis or infection Assessment/Plan: Improved lipase. Continue to follow labs. (3) Splenomegaly Assessment/Plan: Viral etiology suspected as he had no trauma. Follow CBC and exam daily. The LUQ pain is not severe enough for pain meds. He will need a GI eval after DCh. (4) Hypertriglyceridemia Assessment/Plan: Triglycerides are better with DKA resolved. Will follow TG daily as he may need Fibrates. - Current Meds Current Meds: Current Medications Generic Name Dose Route Start Last Admin Trade Name Thaq PRN Reason Stop Dose Admin Docusate Sodium 250 - 500 mg 03/19/18 09:00 03/20/18 10:00 Colace 250mg Capsule PO Not Given DAILY CUCO Famotidine 50 mls @ 100 mls/hr 03/19/18 09:00 03/20/18 10:34 Pepcid 20 Mg/50 Ml IV Infused BID CUCO Infusion Acetaminophen 100 mls @ 400 mls/hr 03/19/18 02:45 03/20/18 08:39 Ofirmev IV Infused Q6HR PRN Infusion PAIN Potassium Chloride 10 meq in 100 mls @ 100 mls/hr 03/20/18 07:00 03/20/18 16: 44 Potassium Chloride IV 03/20/18 18:59 100 mls/hr Q1H CUCO Administration Protocol Sodium Chloride 500 mls @ 10 mls/hr 03/20/18 16:45 03/20/18 17:02 Normal Saline 0.9% IV 75 mls/hr .Q48H PRN Administration Peripheral Line Protocol Insulin Aspart 1 - 9 unit 03/20/18 12:28 03/20/18 12:42 Novolog SUBQ 3 unit 0800,1200,1700,2100 CUCO Administration Protocol Insulin Glargine 10 unit 03/20/18 07:00 03/20/18 07:12 Lantus Solostar SUBQ 10 unit 0600,1800 CUCO Administration Insulin Human Regular 1 - 9 unit 03/20/18 12:00 03/20/18 12:44 Novolin R SUBQ Not Given Q6HR [facility] Protocol Senna 8.6 - 17.2 mg 03/19/18 09:00 03/20/18 10:00 Senokot PO Not Given DAILY CUCO Sodium Chloride 10 ml 03/19/18 01:00 03/20/18 10:55 Normal Saline Flush 0.9% IVP Not Given 0100,0900,1700 CUCO Sodium Chloride 10 ml 03/19/18 00:05 03/20/18 14:33 Normal Saline Flush 0.9% IVP 10 ml PRN PRN Administration NEEDED PER PROVIDER ORDERS - Lab Result Fish Bone Diagrams: 03/20/18 04:40 03/20/18 14:23 - Additional Planning My Orders: My Active Orders 03/20/18 12:28 Insulin Aspart [NovoLOG] 1 - 9 unit SUBQ 0800,1200,1700,2100 03/20/18 14:23 PHOSPHORUS [CHEM] Timed 03/20/18 16:45 Sodium Chloride 0.9% [Normal Saline 0.9%] 500 ml IV 10 mls/hr 03/20/18 Lunch DIET [Full Liquid Diet] [DIET] 03/21/18 05:00 LIPASE [CHEM] DAILYLAB LIPID Panel [CHEM] DAILYLAB Subjective - Subjective Patient Reports: Feeling Better, Other (Pain in LUQ is slight and once had a burning in epigastrium today.) Nursing Reports: Other (No nausea or vomiting. Ate liquid lunch.) Objective Vital Signs: Vital Signs - 24 hr 03/19/18 03/19/18 03/19/18 18:00 19:00 20:00 Temperature 38.0 C H Heart Rate [ 81 79 80 Monitoring electrodes] Respiratory 19 19 18 Rate Blood Pressure 105/56 L 100/53 L 106/59 L [Right Brachial artery] O2 Saturation 97 95 96 03/19/18 03/19/18 03/19/18 20:59 21:00 22:00 Temperature 37.6 C H 37.5 C Heart Rate [ 72 75 73 Monitoring electrodes] Respiratory 17 16 13 Rate Blood Pressure 90/55 L 100/59 L [Right Brachial artery] O2 Saturation 97 97 97 03/19/18 03/20/18 03/20/18 23:00 00:00 01:00 Temperature 37.1 C Heart Rate [ 68 72 72 Monitoring electrodes] Respiratory 12 11 L 13 Rate Blood Pressure 102/55 L 100/55 L 101/61 [Right Brachial artery] O2 Saturation 97 97 97 03/20/18 03/20/18 03/20/18 02:00 03:00 04:17 Temperature 37.0 C Heart Rate [ 59 L 59 L 59 L Monitoring electrodes] Respiratory 15 14 13 Rate Blood Pressure 99/56 L 97/58 L 95/58 L [Right Brachial artery] O2 Saturation 97 97 97 03/20/18 03/20/18 03/20/18 05:00 06:00 07:00 Temperature Heart Rate [ 62 63 67 Monitoring electrodes] Respiratory 12 12 13 Rate Blood Pressure 104/59 L 93/54 L 97/56 L [Right Brachial artery] O2 Saturation 99 03/20/18 03/20/18 03/20/18 07:31 09:00 10:00 Temperature 37.3 C Heart Rate [ 66 70 64 Monitoring electrodes] Respiratory 14 17 14 Rate Blood Pressure 97/56 L 100/60 99/60 [Right Brachial artery] O2 Saturation 98 03/20/18 03/20/18 03/20/18 11:00 11:31 14:00 Temperature Heart Rate [ 64 67 62 Monitoring electrodes] Respiratory 14 15 12 Rate Blood Pressure 93/57 L 93/57 L 92/60 [Right Brachial artery] O2 Saturation 03/20/18 03/20/18 15:00 16:00 Temperature 36.7 C Heart Rate [ 61 65 Monitoring electrodes] Respiratory 15 13 Rate Blood Pressure 89/58 L 103/68 [Right Brachial artery] O2 Saturation 100 Oxygen O2 Source Room air I&O (Last 24 Hrs): Intake and Output Totals x24h 03/18/18 03/19/18 03/20/18 23:59 23:59 23:59 Intake Total 5921.800 3974.767 Output Total 5075 825 Balance 550.550 2800.767 General: Alert, Oriented x3 HEENT: Mucous membr. moist/pink Neck: Supple Neuro: Non Focal Cardiovascular: Regular rate, No murmurs Respiratory: No respiratory distress, Breath sounds nml Abdomen: Soft, No tenderness Extremities: No edema - Results Results: Laboratory Results WBC 4.9 x10^3/uL (4.8-10.8) 03/20/18 04:40 RBC 3.32 10^6/uL (4.70-6.10) L 03/20/18 04:40 Hgb 11.0 g/dL (14.0-18.0) L 03/20/18 04:40 Hct 32.2 % (42.0-52.0) L 03/20/18 04:40 MCV 94.1 fL (80.0-94.0) H 03/20/18 04:40 MCH 32.2 pg (27.0-31.0) H 03/20/18 04:40 MCHC 34.3 g/dL (32.0-36.0) 03/20/18 04:40 RDW 13.7 % (12.0-15.0) 03/20/18 04:40 Plt Count 131 10^3/uL (130-450) 03/20/18 04:40 MPV 7.6 fL (7.4-11.4) 03/20/18 04:40 Neut # 3.2 10^3/uL (1.5-6.6) 03/20/18 04:40 Lymph # 0.6 10^3/uL (1.5-3.5) L 03/20/18 04:40 [place] # 0.8 10^3/uL (0.0-1.0) 03/20/18 04:40 Eos # 0.1 10^3/uL (0.0-0.7) 03/20/18 04:40 Baso # 0.2 10^3/uL (0.0-0.1) H 03/20/18 04:40 Absolute Nucleated RBC 0.00 x10^3/uL 03/20/18 04:40 Nucleated RBC % 0.0 /100WBC 03/20/18 04:40 VBG pH 7.266 (7.31-7.41) L 03/19/18 08:00 VBG pCO2 18.8 mmHg (41-51) L 03/19/18 00:34 VBG pO2 73.6 mmHg (25-47) H 03/19/18 00:34 VBG HCO3 5.9 mmol/L (23-28) L 03/19/18 00:34 VBG Total CO2 6.5 mmol/L (24-29) L 03/19/18 00:34 VBG O2 Saturation 94.7 % (60-80) H 03/19/18 00:34 VBG Base Excess -21.5 mmol/L (-2 - +2) L 03/19/18 00:34 Ionized Calcium 1.20 mmol/L (1.15-1.33) 03/19/18 08:00 Sodium 133 mmol/L (135-145) L 03/20/18 04:40 Potassium 3.1 mmol/L (3.5-5.0) L 03/20/18 14:23 Chloride 105 mmol/L (101-111) 03/20/18 04:40 Carbon Dioxide 22 mmol/L (21-32) 03/20/18 04:40 Anion Gap 6.0 (6-13) 03/20/18 04:40 BUN 10 mg/dL (6-20) 03/20/18 04:40 Creatinine 0.6 mg/dL (0.6-1.2) 03/20/18 04:40 Estimated GFR (MDRD) 160 (>89) 03/20/18 04:40 Glucose 178 mg/dL (70-100) H 03/20/18 04:40 POC Whole Bld Glucose 265 mg/dL (70 - 100) H 03/20/18 16:51 Glycated Hemoglobin 12.1 % (4.6-6.2) H 03/19/18 00:34 Estim Average Glucose 301 (70-100) H 03/19/18 00:34 Lactic Acid 0.8 mmol/L (0.5-2.2) 03/18/18 23:28 Calcium 8.3 mg/dL (8.5-10.3) L 03/20/18 04:40 Phosphorus 2.5 mg/dL (2.5-4.6) 03/20/18 10:25 Magnesium 2.1 mg/dL (1.7-2.8) 03/20/18 14:23 Total Bilirubin 0.8 mg/dL (0.2-1.0) 03/20/18 04:40 AST < 10 IU/L (10-42) L 03/20/18 04:40 ALT 10 IU/L (10-60) 03/20/18 04:40 Alkaline Phosphatase 96 IU/L (42-121) 03/20/18 04:40 Troponin I < 0.04 ng/mL (<0.49) 03/19/18 18:18 Total Protein 5.4 g/dL (6.7-8.2) L 03/20/18 04:40 Albumin 3.1 g/dL (3.2-5.5) L 03/20/18 04:40 Globulin 2.3 g/dL (2.1-4.2) 03/20/18 04:40 Albumin/Globulin Ratio 1.3 (1.0-2.2) 03/20/18 04:40 Triglycerides 405 mg/dL (-149) H 03/20/18 04:40 Cholesterol 162 mg/dL (-199) 03/20/18 04:40 LDL Cholesterol Direct 51 mg/dL (-129) 03/20/18 04:40 LDL Cholesterol, Calc Not Reportable 03/20/18 04:40 VLDL Cholesterol Not Reportable 03/20/18 04:40 HDL Cholesterol 16 mg/dL (60-) L 03/20/18 04:40 LDL/HDL Ratio Not Reportable 03/20/18 04:40 dLDL/HDL Ratio 3.2 (<3.6) 03/20/18 04:40 Cholesterol/HDL Ratio 10.1 (<5.0) 03/20/18 04:40 Lipase 209 U/L (22-51) H 03/20/18 05:00 TSH 2.74 uIU/mL (0.34-5.60) 03/19/18 08:00 Urine Color YELLOW 03/18/18 23:05 Urine Clarity CLEAR (CLEAR) 03/18/18 23:05 Urine pH 5.5 PH (5.0-7.5) 03/18/18 23:05 Ur Specific [place] >=1.030 (1.002-1.030) H 03/18/18 23:05 Urine Protein 30 mg/dL (NEGATIVE) H 03/18/18 23:05 Urine Glucose (UA) 500 mg/dL (NEGATIVE) H 03/18/18 23:05 Urine Ketones >=80 mg/dL (NEGATIVE) H 03/18/18 23:05 Urine Occult Blood MODERATE (NEGATIVE) H 03/18/18 23:05 Urine Nitrite NEGATIVE (NEGATIVE) 03/18/18 23:05 Urine Bilirubin NEGATIVE (NEGATIVE) 03/18/18 23:05 Urine Urobilinogen 0.2 (NORMAL) E.U./dL (NORMAL) 03/18/18 23:05 Ur Leukocyte Esterase NEGATIVE (NEGATIVE) 03/18/18 23:05 Urine RBC 11-25 /HPF (0-5) H 03/18/18 23:05 Urine WBC 0-3 /HPF (0-3) 03/18/18 23:05 Ur Squamous Epith Cells RARE Squamous (<= Few) 03/18/18 23:05 Urine Bacteria Rare /HPF (None Seen) 03/18/18 23:05 Urine Casts 11-25 Hyaline Casts /LPF 03/18/18 23:05 Urine Mucus Few Strands 03/18/18 23:05 Ur Microscopic Review INDICATED 03/18/18 23:05 Urine Culture Comments NOT INDICATED 03/18/18 23:05 Serum Ketones MODERATE (NEGATIVE) H 03/19/18 22:15 HIV 1&2 Ag/Ab, 4th Gen NON-REACTIVE (NON-REACTIVE) 03/19/18 05:55 Infectious [place] Assay NEGATIVE (Negative) 03/18/18 23:28
[2018-03-21] MEDS: SODIUM CHLORIDE FLUSH 0.9% 10 ML SYRINGE IVP SCH ×3 (01:00→18:22)
[2018-03-21 05:17] LABS: MAGNESIUM 2.2 mg/dL (1.7-2.8); PHOSPHORUS 3.7 mg/dL (2.5-4.6)
[2018-03-21 05:21] LABS: BASOPHILS # (AUTO) 0.3 10^3/uL (0.0-0.1); BASOPHILS % (AUTO) 10.6 %; EOSINOPHILS # (AUTO) 0.2 10^3/uL (0.0-0.7); EOSINOPHILS % (AUTO) 5.7 %; HGB - HEMOGLOBIN 10.7 g/dL (14.0-18.0); LYMPHOCYTES # (AUTO) 0.6 10^3/uL (1.5-3.5); LYMPHOCYTES % (AUTO) 21.4 %; MEAN CORPUSCULAR HEMOGLOBIN 33.3 pg (27.0-31.0); MEAN CORPUSCULAR HGB CONC 35.4 g/dL (32.0-36.0); MEAN CORPUSCULAR VOLUME 94.2 fL (80.0-94.0); MEAN PLATELET VOLUME 7.6 fL (7.4-11.4); MONOCYTES # (AUTO) 0.3 10^3/uL (0.0-1.0); MONOCYTES % (AUTO) 12.7 %; NEUTROPHILS # (AUTO) 1.3 10^3/uL (1.5-6.6); NEUTROPHILS % (AUTO) 49.6 %; PLT - PLATELET COUNT 117 10^3/uL (130-450); RED BLOOD COUNT 3.22 10^6/uL (4.70-6.10); WHITE BLOOD COUNT 2.7 x10^3/uL (4.8-10.8)
[2018-03-21 05:27] LABS: ALBUMIN 2.9 g/dL (3.2-5.5); ALBUMIN/GLOBULIN RATIO 1.2 (1.0-2.2); ALKALINE PHOSPHATASE 91 IU/L (42-121); ALT ALANINE AMINOTRANSFERASE 10 IU/L (10-60); AST ASPARTATE AMINOTRANSFERASE 10 IU/L (10-42); BILIRUBIN,TOTAL 1.1 mg/dL (0.2-1.0); BUN - BLOOD UREA NITROGEN 10 mg/dL (6-20); CALCIUM 8.7 mg/dL (8.5-10.3); CARBON DIOXIDE - CO2 22 mmol/L (21-32); CHLORIDE 104 mmol/L (101-111); CHOL/HDL RATIO 11.3 (<5.0); CHOLESTEROL 214 mg/dL; CREATININE 0.6 mg/dL (0.6-1.2); GFR - MDRD 160 (>89); GLUCOSE 214 mg/dL (70-100); HDL CHOLESTEROL 19 mg/dL; LDL CHOLESTEROL,CALCULATED 149 mg/dL; LDL/HDL RATIO 7.8 (<3.6); LIPASE 90 U/L (22-51); SODIUM 134 mmol/L (135-145); TOTAL PROTEIN 5.3 g/dL (6.7-8.2); VLDL CHOLESTEROL 46 mg/dL
[2018-03-21] MEDS: INSULIN GLARGINE 300 UNIT/3 ML PEN SUBQ SCH (06:28)
[2018-03-21 06:55] LABS: PLATELET ESTIMATE, MANUAL DECREASED (<130,000) (NORMAL); RBC MORPHOLOGY (MULTIPLE) NORMAL APPEARANCE (NORMAL)
[2018-03-21] MEDS: INSULIN ASPART 300 UNIT/3 ML PEN SUBQ SCH ×2 (08:16→12:05)
[2018-03-21] MEDS: FAMOTIDINE 20 MG/50 ML 50 ML IV SCH (09:22)
[2018-03-21] MEDS: SENNA 8.6 MG TABLET PO SCH (09:22)
[2018-03-21] MEDS: DOCUSATE SODIUM 250 MG CAPSULE PO SCH (09:22)
[2018-03-21] MEDS ORDERED: POTASSIUM CHLORIDE 20 MEQ TABLET PO ONE (12:49)
[2018-03-21] MEDS: POTASSIUM CHLOR 20 MEQ/100 ML 20 MEQ/100 ML BAG IV SCH ×2 (13:23→15:05)
[2018-03-21 13:39] VITALS: BP 97/51
[2018-03-21] MEDS ORDERED: WATER FOR INJECTION,STERILE 10 ML ONE (15:03)
[2018-03-21] MEDS ORDERED: INSULIN ASPART 300 UNIT/3 ML PEN SUBQ SCH ×2 (17:00→21:00)
--- NOTE | 2018-03-21 17:05 | Discharge Plan ---
Discharge Plan Disposition: Home, Self Care Condition: Stable Prescriptions: Blood Sugar Diagnostic [Glucometer Strips] 1 each ACHS #100 strip Blood-Glucose Meter [Glucometer] 1 each ACHS #1 each Insulin Aspart [Novolog Flexpen] 1 - 5 unit SUBQ ACHS #2 each Insulin Aspart (Vial) [NovoLOG (VIAL FOR ED USE)] 1 - 5 unit SUBQ ACHS #100 ml Insulin Glargine [Lantus Solostar] 10 unit SUBQ BID #2 pen Lancets [Blood Lancets] 1 each ACHS #100 each Critz, Disposable [Easy Touch Hypodermic Needle] 1 each ACHS #100 dis.needle Diet: Diabetic Activity Restrictions: Activity as Tolerated Shower Restrictions: No Driving Restrictions: No Instruction Topics: Triglycerides, Blood Sugar Check, Pancreatitis, Diabetes Low Blood Sugar Ch, Hypoglycemia Steps Additional Instructions or Follow Up instructions: See a PCP within 1 week for follow up of your Diabetes. [place] [facility] [place] [place]. Begin a Diabetic diet and Insulin use and glucose monitoring. Know what to do if you experience a low blood sugar. No Smoking: If you smoke, Please STOP! Call for help. Follow-up with: Mak Sweeney MD [Primary Care Provider] -
[2018-03-21 18:39] LABS: HB2 TOTAL 11.4 g/dL; HEMOGLOBIN A1C 1.17 g/dL; HEMOGLOBIN A1C % 11.5 % (4.6-6.2)
[2018-03-21] MEDS ORDERED: INSULIN GLARGINE 300 UNIT/3 ML PEN SUBQ SCH (21:00)
[2018-03-22 04:57] LABS: CMV DNA QN RT PCR <200 IU/mL; SOURCE Blood
--- NOTE | 2018-03-23 20:14 | DISCHARGE SUMMARY ---
Physician: Amber Sahu MD DATE OF ADMISSION: 03/19/2018 DATE OF DISCHARGE: 03/21/2018 HISTORY OF PRESENT ILLNESS: This is a 27-year-old white male with a history of anxiety, depression vs bipolar disorder, which is untreated. He takes no medications, presents with a several day history of worsening abdominal pain, a 30 pound weight loss over 5 months, no polyuria or polydipsia, positive chills, but no fever, severe left upper quadrant pain and radiation from his epigastrium through to his back. In the emergency room, he was found to be afebrile, but lab work showed metabolic acidosis, positive serum ketones, glucose level of 322. HbA1c of 12.1 and he was admitted for management of DKA and newly diagnosed diabetes mellitus. HOSPITAL COURSE AND DISCHARGE DIAGNOSES: 1. DKA (diabetic ketoacidosis). This is the patient's first diagnosis of diabetes. He was put on a DKA protocol with an insulin drip, saline hydration, replacement of potassium, initiation of Lantus subcutaneous insulin, diabetic diet and sliding scale Aspart insulin and was taught how to manage his diet, glucose checks with a glucometer and to administer insulin via pen or vial. The patient initially was very worried and possibly depressed over the diagnosis, but eventually was accepting of this and eager to have further management. He was offered several doctors in the area and will need close followup for management of diabetes. 2. Pancreatitis. The patient's lipase level on admission was 308. He underwent abdominal imaging which did show mild pancreatic edema consistent with pancreatitis. This could have been the etiology of the epigastric pain. His serum triglyceride levels were greater than 2000 and this likely was the cause of the pancreatitis. At discharge, his lipase level had decreased to 90. 3. Splenomegaly. Abdominal imaging showed marked splenomegaly, which was also palpable on exam and was slightly tender. This was the second reason for his potential abdominal symptoms. There was no evidence of a viral infection to explain the splenomegaly, CMV titers were negative, HIV titers were nonreactive, mononucleosis was negative. There had been no abdominal trauma. The patient was advised to have further evaluation and management for the splenomegaly. 4. Hypertriglyceridemia. With correction of glucose, the subsequent triglyceride values dropped from >2000 to 405 and 231 at discharge. It was felt that his undiagnosed diabetes led to uncontrolled high triglycerides, which added to the pancreatitis. Depending on his glucose control, additional triglyceride treatment may or may not be needed as an outpatient. 5. Fatty liver. This was another finding on abdominal imaging, consistent with the above diagnoses. 6. Hypokalemia. The patient required potassium replacement through discharge today. He was advised to have a liberal potassium oral intake, but not discharged on potassium replacement. 7. Anemia. The patient's admission hemoglobin was 14.3, which was significantly lower at discharge due to hydration. There was no lower GI blood loss apparent or hematemesis. Discharge CBC showed a white count of 2.7, hemoglobin 10.7, hematocrit 30.3, MCV of 94. ALLERGIES: GLUTEN. MEDICATIONS AT THE TIME OF DISCHARGE: 1. Lantus insulin 10 units subcutaneous b.i.d. 2. Aspart insulin low dose correction sliding scale. He was provided with lancets, glucometer strips, a glucometer, needles, as well as a sliding scale correction graph and many dietary educational tools. PHYSICAL EXAMINATION: At discharge: VITAL SIGNS: Blood pressure 97/51, pulse of 76, sinus rhythm, afebrile, room air saturation 100 percent. HEENT: Unremarkable. NECK: Without JVD. CHEST: Clear. HEART: Sounds normal. No murmur. ABDOMEN: Soft, nontender. EXTREMITIES: Without edema. NEUROLOGIC: Intact. FOLLOWUP: With a new PCP in the next 1 week. He was provided with contacts. CODE STATUS: FULL CODE. Time required to complete the entire discharge, chart review, medication ordering and dictation: 60 minutes. TD: 03/22/2018 20:55 LEONELA
== END 2018-03-21 18:00 | disposition home or self-care (01) | DRG 637 ==
LOC: ED 22:43 → ICU 03-19 00:05
PROVIDERS: ADMIT Internal Medicine; ATTEND Internal Medicine
DX: E10.10 Type 1 diabetes mellitus with ketoacidosis without coma (principal); K85.80 Other acute pancreatitis without necrosis or infection; E87.1 Hypo-osmolality and hyponatremia; F31.9 Bipolar disorder, unspecified; R16.1 Splenomegaly, not elsewhere classified; E78.1 Pure hyperglyceridemia; K76.0 Fatty (change of) liver, not elsewhere classified; D64.9 Anemia, unspecified; E86.1 Hypovolemia; E87.6 Hypokalemia
CPT/HCPCS: 36415; 74177; 76705; 80048; 80053; 80061; 80074; 81001; 81003; 82009; 82040; 82330; 82803; 82947; 83036; 83605; 83690; 83721; 83735; 84100; 84132; 84443; 84484; 85025; 86308; 87086; 87150; 87389; 87497; 99283; 99284

== ENCOUNTER 2024-03-27 13:17 | Outpatient (CLI) | payer OTHER | END 2024-03-27 23:59 | disposition short-term general hospital (02) | LOC: EMS 13:17 | DX: K62.5 Hemorrhage of anus and rectum (principal); R53.1 Weakness; R42 Dizziness and giddiness; R11.10 Vomiting, unspecified | CPT/HCPCS: A0425; A0427 ==